=== PATIENT | female | born 1975 | race Caucasian/White ===

== ENCOUNTER 2017-01-12 15:56 | Emergency (ER) | payer OTHER ==
[~2017-01-12] VITALS: Ht 157.5 cm; Wt 99.8 kg
[2017-01-12 15:57] VITALS: BP 130/85; PULSE 89; RESP 18; TEMP 97.6; O2SAT 97
[2017-01-12 16:25] LABS: BILIRUBIN,URINE NEGATIVE (NEGATIVE); BLOOD, URINE 3+ (NEGATIVE); COLOR,URINE YELLOW (YELLOW); GLUCOSE,URINE NEGATIVE (NEGATIVE); KETONES,URINE NEGATIVE (NEGATIVE); LEUKOCYTE ESTERASE ,URINE NEGATIVE (NEGATIVE); NITRITE, URINE NEGATIVE (NEGATIVE); PH,URINE 5.5 (5.0-8.0); PROTEIN URINE NEGATIVE (NEGATIVE); UROBILINOGEN,URINE 0.2 (0.2-1.0)
[2017-01-12 16:32] LABS: CLARITY/URINE HAZY (CLEAR)
[2017-01-12 16:34] LABS: BACTERIA,URINE FEW /HPF (None Seen); MUCUS,URINE None Seen /LPF (None Seen); RBC,URINE 50-80 /HPF (0-3); WBC,URINE NONE SEEN /HPF (0-3)
[2017-01-12 16:46] LABS: BASOPHILS # (AUTO) 0.2 K/uL (0.0-0.2); BASOPHILS % (AUTO) 1.5 % (0.0-2.0); EOSINOPHILS # (AUTO) 0.3 K/uL (0.0-0.4); EOSINOPHILS % (AUTO) 2.4 % (0.0-4.0); HEMATOCRIT 38.7 % (36-48); LYMPHOCYTES % (AUTO) 16.8 % (20.5-51.5); MEAN CORPUSCULAR HEMOGLOBIN 29 pg (27-31); MEAN CORPUSCULAR HGB CONC 34 % (32-36); MEAN CORPUSCULAR VOLUME 85 fL (79.0-98.0); MONOCYTES # (AUTO) 0.6 K/uL (0.0-1.0); MONOCYTES % (AUTO) 5.1 % (1.7-9.3); NEUTROPHILS # (AUTO) 8.9 K/uL (1.8-7.7); NEUTROPHILS % (AUTO) 74.2 % (40.0-70.0); PLATELET COUNT (AUTO) 365 K/uL (130-430); RED BLOOD CELL COUNT(AUTO) 4.55 MIL/uL (4.2-6.2); RED CELL DISTRIBUTION WIDTH 12.4 % (9.0-15.0)
[2017-01-12 16:49] LABS: CALCIUM 9.3 mg/dL (8.4-11.0); CREATININE 0.86 mg/dL (0.55-1.30)
[2017-01-12 17:00] LABS: TOTAL BILIRUBIN 0.3 mg/dL (0.0-1.0); TOTAL PROTEIN, SERUM 7.4 g/dL (6.4-8.3)
[2017-01-12 18:15] VITALS: BP 130/91; PULSE 86; RESP 12; TEMP 98.9; O2SAT 95
== END 2017-01-12 18:15 | disposition home or self-care (01) ==
LOC: SED 15:56
DX: N93.8 Other specified abnormal uterine and vaginal bleeding (principal); N83.201 Unspecified ovarian cyst, right side; Z98.51 Tubal ligation status
CPT/HCPCS: 36415; 76830-TC; 76857; 80053; 81000-TC; 81025; 84702-TC; 85025; 86900; 86901; 99285

== ENCOUNTER 2017-12-09 21:04 | Emergency (ER) | payer BC, OTHER ==
[~2017-12-09] VITALS: Ht 157.5 cm; Wt 90.7 kg
[2017-12-09 21:05] VITALS: BP_SYST 118
[2017-12-09] MEDS ORDERED: KETOROLAC TROMETHAMINE 30 MG VIAL IVP ONE (22:45)
[2017-12-10 00:34] VITALS: BP_SYST 120
== END 2017-12-10 00:34 | disposition home or self-care (01) ==
LOC: SED 21:04
DX: N83.02 Follicular cyst of left ovary (principal)
CPT/HCPCS: 76830; 76857; 81025; 96374; 99284; J1885; J7030

== ENCOUNTER 2022-02-08 21:43 | Emergency (ER) | payer BC ==
[~2022-02-08] VITALS: Ht 154.9 cm; Wt 99.8 kg
[2022-02-08 21:57] VITALS: BP_SYST 123
--- NOTE | 2022-02-08 22:01 | NUR ---
Patient triaged and placed in waiting room. VS checked and patient appears in no acute distress at this time. Awaiting available bed, and MD notified of need for MSE.
--- NOTE | 2022-02-09 03:50 | NUR ---
Called patient 3x, no answer. Patient left without being seen. No further treatment provided. ER MD aware
== END 2022-02-09 03:50 | disposition left against medical advice (07) ==
LOC: SED 21:43
DX: T19.2XXA Foreign body in vulva and vagina, initial encounter (principal); Z53.21 Procedure and treatment not carried out due to patient leaving prior to being seen by health care provider

== ENCOUNTER 2022-02-09 06:54 | Emergency (ER) | payer BC ==
[~2022-02-09] VITALS: Ht 162.6 cm; Wt 97.5 kg
[2022-02-09 07:25] VITALS: BP_SYST 135
[2022-02-09 07:44] VITALS: BP_SYST 133
--- NOTE | 2022-02-09 07:47 | NUR ---
pt c/o possible condom stuck in vagina since 2099 last night.
--- NOTE | 2022-02-09 07:50 | NUR ---
dr palmer at bedside
--- NOTE | 2022-02-09 08:05 | NUR ---
chaperoned dr palmer with pelvic exam. condom removed intact.
--- NOTE | 2022-02-09 08:11 | NUR ---
pt verbalizes dc instructions. no acute distress noted. stable on dc.
== END 2022-02-09 08:11 | disposition home or self-care (01) ==
LOC: SED 06:54
DX: T19.2XXA Foreign body in vulva and vagina, initial encounter (principal); X58.XXXA Exposure to other specified factors, initial encounter; Y93.89 Activity, other specified; Y92.89 Other specified places as the place of occurrence of the external cause; Y99.8 Other external cause status
CPT/HCPCS: 99284